=== PATIENT | male | born 1950 | race Caucasian/White ===

== ENCOUNTER 2024-05-05 12:28 | Observation (INO) ==
[2024-05-05] MEDS ORDERED: iohexoL-300 100 ML VIAL ONE (12:35)
--- NOTE | 2024-05-05 12:40 | ED Physician Documentation ---
History of Present Illness Stated complaint Stated Complaint: NOT FEELING WELL/WEAKNESS Chief complaint Chief Complaint: Neuro Additonal information Additional information: Within the last few weeks he has had a diagnosis of metastatic cecal cancer. I was able to pull up records on care everywhere and he has numerous liver masses and had a colonoscopy just yesterday showing a cecal mass. I did not see that he had had cranial imaging done. Today at 10 AM developed right sided facial droop, weakness, and off balance not associated with headache. He has no history of stroke. Prehospital blood pressure and blood sugar were unremarkable. He was being referred to [facility] for the above. Brought in as a code stroke. Not anticoagulated. [facility] Social History Social History Do you feel safe in your home environment?: Yes Suffered physical, verbal, emotional, or financial abuse?: No Exam Constitutional normal general appearance and no apparent distress He is thin and cachectic with a soft voice. Eyes PERRL and EOMs intact bilaterally Respiratory breath sounds equal bilaterally, normal respiratory effort and clear to auscultation bilaterally Cardiovascular normal heart rate noted, regular rhythm noted and no murmur Gastrointestinal abdomen soft to palpation, nontender to palpation and nontender to percussion Extremities 2+ edema bilateral Results Vitals Vitals: Vital Signs - 24 hr 05/05/24 12:47 Temperature 36.5 C Temperature Source Temporal Artery Scan Pulse Rate 91 Respiratory Rate 13 Blood Pressure 126/80 O2 Saturation 98 O2 Source Room air Pain Intensity 0 Oxygen O2 Source Room air EKG (time done) 1255: EKG releavant findings:: EKG personally interpreted by author of this note. Relevant findings are: Normal sinus rhythm with a rate of 88. No ST elevation or depression. Computer notes "aberrant conduction of SV complexes." Computer also notes a PVC but I think it is artifactual looking at the third beat in V2. PD Medical Decision Making ED course ED course: He presents as a code stroke with right-sided deficits and an NIH stroke scale of 4 with time of onset at 10 AM. He was taken straight over to CT. Given the above history of would also be concern for intracranial metastatic disease as the cause of his symptomatology. The facial droop would suggest against spinal cord disease causing his symptomatology. I spoke with our telestroke neurologist, Dr. Barroso at 12:55 PM and she will see the patient. But at least initially based on the above history she was very hesitant to recommend thrombolytics given that he had a biopsy yesterday and could cause liver hemorrhage as well. Dr. Barroso called me back and we spoke again around 1:05 PM and confirms that he should have an MRI with and without contrast. Permissive hypertension, aspirin now and admit for further workup. Does not recommend thrombolysis.. I spoke with our hospitalist team at 1:15 PM for admission. The patient and family are counseled as to the diagnosis and need for admission. This document was made in part using voice recognition software, while efforts are made to proofread this document, sound alike an grammatical errors may occur. 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 Print Language: Belarusian Stand Alone Forms: PCP List NIHSS Time 1235: Time: 12:35 Level of Consciousness Level of consciousness: (0) Alert, Keenly responsive LOC Questions: (0) Answers both Q's correct LOC Commands: (0) Performs both correctly Gaze Best Gaze: (0) Normal Visual Visual: (0) No loss Facial Palsy Facial Palsy: (2) Partial paralysis (right) Motor Arms (both separate) Motor Arm (right): (1) Drift Motor Arm (left): (0) No drift Motor Legs (both separate) Motor Leg (right): (0) No drift Motor Leg (left): (0) No drift Limb Ataxia Limb Ataxia: (1) Present in 1 limb (RUE) Sensory Sensory: (0) Normal Best Language Best Language: (0) No aphasia Dysarthria Dysarthria: (0) Normal Extinction and Inattention (formally neg Extinction and inattention: (0) No abnormality Total Score/Results Total Score/Result: 4
--- NOTE | 2024-05-05 12:51 | CT Report ---
PROCEDURE: CT Head W/O Stroke Protocol INDICATIONS: Neuro deficit, acute, stroke suspected TECHNIQUE: Noncontrast 4.5 mm thick angled axial sections acquired from the foramen magnum to the vertex, with c oronal reformats. For radiation dose reduction, the following was used: automated exposure control, adjustment of mA and/or kV according to patient size. COMPARISON: None. FINDINGS: Image quality: Excellent. CSF spaces: Basal cisterns are patent. No extra-axial fluid collections. Ventricles are normal in size and shape. Brain: No midline shift. No intracranial masses or hemorrhage. Chow-white matter interface is norm al. Intracranial carotid calcifications. Age-related volume loss and small vessel ischemic change. Skull and face: Calvarium and visualized facial bones are intact, without suspicious lesions. Sinuses: Visualized sinuses and mastoids are clear. IMPRESSION: No acute intracranial pathology Above discussed with Umer Mayer MD at the time of dictation on 05/05/2024 at 1248 hours. This study fulfills neurological imaging criteria for inclusion or exclusion of acute stroke therapie s based on available published neurological imaging guidelines. Reviewed by: Jose Arreola MD on 05/05/2024 12:50 PM PST Approved by: Jose Arreola MD on 05/05/2024 12:50 PM PST Station ID: [id number]
[2024-05-05] MEDS: iohexoL-300 100 ML VIAL IVP ONE (12:52)
--- NOTE | 2024-05-05 12:58 | CT Report ---
PROCEDURE: CT Angio Head/Neck INDICATIONS: cva sx TECHNIQUE: After the administration of intravenous contrast, 1 mm thick sections acquired from the aortic arch t hrough the Justin of Olivares. 3-dimensional ldhhofs-gnvrcnrbm-citiqogake (MIP) and/or volume renderin g reformats were acquired of the central intracranial vasculature and neck separately. For radiation dose reduction, the following was used: automated exposure control, adjustment of mA and/or kV acco rding to patient size. CONTRAST: 80ml omni 300 COMPARISON: CT head without contrast obtained immediately prior to this study. FINDINGS: Image quality: Diagnostic. HEAD CT: CSF Spaces: Basal cisterns are patent. No extra-axial fluid collections. Ventricles are normal in size and shape. Brain: No significant abnormality is seen for scanning technique. Skull and face: Calvarium and visualized facial bones appear intact, without suspicious lesions. Sinuses: Visualized sinuses and mastoids are clear. HEAD CT ANGIOGRAPHY: Anterior circulation: Intracranial internal carotid arteries are normal in size and flow. The flow within the paired anterior cerebral arteries is normal and symmetric. The flow within the middle cer ebral arteries is normal and symmetric. The anterior communicating artery is seen. No aneurysms are seen. Posterior circulation: Visualized portions of the vertebral arteries demonstrate normal caliber, and join to form a normal appearing basilar artery. Flow within the posterior cerebral arteries is norm al and symmetric. No aneurysms are seen. NECK CT ANGIOGRAPHY: Carotid system: The great vessels demonstrate a conventional anatomy as they arise from the aortic a rch. The origins of the common carotid arteries appear patent. The common carotid arteries demonstr ate normal caliber and courses. The bifurcation regions are both widely patent. The internal caroti d arteries demonstrate normal calibers and courses. Posterior circulation: The origins of the vertebral arteries both appear widely patent. The more jensen perior extracranial portions of both vertebral arteries also demonstrate normal courses and calibers. They join to form a normal appearing basilar artery. Soft tissues: Visualized neck soft tissues demonstrate no suspicious abnormalities. Bones: No suspicious bony lesions. Visualized cervical spine appears normally aligned. IMPRESSION: No significant intracranial arterial abnormality is seen. No significant abnormality is seen within the arteries of the neck. The estimate of stenosis included in the report of the imaging study was calculated using the NASCET method Reviewed by: Jose Arreola MD on 05/05/2024 12:57 PM PST Approved by: Jose Arreola MD on 05/05/2024 12:57 PM [facility] Station ID: [id number]
[2024-05-05] MEDS ORDERED: GADOTERATE MEGLUMINE 7.5 MMOL/15 ML VIAL ONE (13:14)
[2024-05-05] MEDS: ASPIRIN CHEW 81 MG TABLET PO STA (13:26)
[2024-05-05 13:33] LABS: BASOPHILS % (AUTO) 0.1 %; EOSINOPHILS % (AUTO) 0.3 %; HCT - HEMATOCRIT 35.2 % (42.0-52.0); HGB - HEMOGLOBIN 10.5 g/dL (14.0-18.0); LYMPHOCYTES # (AUTO) 1.3 10^3/uL (1.5-3.5); MEAN CORPUSCULAR HGB CONC 29.8 g/dL (32.0-36.0); MEAN CORPUSCULAR VOLUME 87.1 fL (80.0-94.0); MEAN PLATELET VOLUME 11.3 fL (7.4-11.4); MONOCYTES # (AUTO) 1.3 10^3/uL (0.0-1.0); MONOCYTES % (AUTO) 8.8 %; NEUTROPHILS # (AUTO) 11.8 10^3/uL (1.5-6.6); PLT - PLATELET COUNT 300 10^3/uL (130-450); RED BLOOD COUNT 4.04 10^6/uL (4.70-6.10); RED CELL DISTRIBUTION WIDTH 19.8 % (12.0-15.0); WHITE BLOOD COUNT 14.5 x10^3/uL (4.8-10.8)
--- NOTE | 2024-05-05 14:22 | MRI Report ---
PROCEDURE: MRI Brain W/WO INDICATIONS: CVA, metastatic CA CONTRAST: Clariscan 15ml TECHNIQUE: Noncontrast axial T1 spin echo, axial T2 fast spin echo, sagittal and axial FLAIR, coronal T2 fast sp in echo, axial gradient echo, axial diffusion and ADC through the brain. After the administration of contrast, axial and coronal T1 spin echo with fat saturation through the brain. COMPARISON: Head CT and CT angiogram of the head and neck dated 05/05/2024. FINDINGS: Image quality: Excellent. CSF spaces: Basal cisterns are patent. No extra-axial fluid collections. Ventricles are normal in size and shape. Brain: No midline shift. No intracranial bleeds or masses. No abnormal intracranial enhancement. There is cerebral volume loss for age. There is very mild, age-appropriate periventricular white mat ter chronic small vessel ischemic change. The brainstem appears normal. Diffusion-weighted images d emonstrate no acute ischemic insults. No chronic ischemic insults. Normal intravascular flow voids are present. Skull and face: Calvarial marrow is normal in signal. Orbits appear normal. Sinuses: Sinuses and mastoids appear clear. IMPRESSION: Unremarkable brain MRI for patient age with without contrast. No acute stroke. No metast atic disease. No acute process. Reviewed by: Jose Arreola MD on 05/05/2024 2:20 PM PST Approved by: Jose Arreola MD on 05/05/2024 2:20 PM PST Station ID: [id number]
[2024-05-05 14:55] LABS: ALBUMIN 3.1 g/dL (3.2-5.5); ALBUMIN/GLOBULIN RATIO 0.9 (1.0-2.2); BILIRUBIN,TOTAL 2.5 mg/dL (0.2-1.0); CALCIUM 9.6 mg/dL (8.5-10.3); CREATININE 0.9 mg/dL (0.6-1.3); INR 1.6 (0.8-1.2); POTASSIUM 3.5 mmol/L (3.5-4.5); PT - PROTHROMBIN TIME 17.4 secs (9.9-12.6); TOTAL PROTEIN 6.7 g/dL (6.4-8.9)
--- NOTE | 2024-05-05 15:06 | HISTORY & PHYSICAL EXAMINATION ---
Chief Complaint Chief Complaint Chief Complaint: right hand not working History of Present Illness Admitted From Admitted From:: home History Obtained From History obtained from: Patient and sister History of Present Illness HPI Comment/Other: 73-year-old male who received a diagnosis of metastatic colon cancer 2 weeks ago and a past medical history of hypertension presents to the emergency department with complaints of right sided weakness and right facial droop. He received his cancer diagnosis about 2 weeks ago through an ED visit in [place]. He has not yet started treatment. He had a colonoscopy yesterday at [facility]. He has a history of rheumatoid arthritis of which she states he is cured with diet and hypertension. He is experienced some weight loss over the last months as well as weakening of his voice. He tells me that he wants to go home and that he does not want to stay in the hospital. Meds/Allgy Home Medications Ambulatory Orders Medication Instructions Recorded Confirmed amlodipine 5 mg tablet (Norvasc) 5 mg PO DAILY 05/05/24 05/05/24 hydrocodone 5 mg-acetaminophen 325 1 tab PO BID PRN pain 05/05/24 05/05/24 mg tablet irbesartan 150 1 tab PO DAILY 05/05/24 05/05/24 mg-hydrochlorothiazide 12.5 mg tablet (Avalide) mirtazapine 15 mg tablet 15 mg PO DAILY 05/05/24 05/05/24 spironolactone 25 mg tablet 25 mg PO DAILY 05/05/24 05/05/24 (Aldactone) Allergies Allergies Allergy/AdvReac Type Severity Reaction Status Date / Time No Known Drug Allergies Allergy Verified 05/05/24 13:25 [facility] Social History Social History Smoking Status: Former smoker Second hand tobacco smoke exposure: No Do you dip or chew tobacco?: No Do you vape?: No Relationship: Sibling Level: Independent Do you feel safe in your home environment?: Yes Suffered physical, verbal, emotional, or financial abuse?: No POLST Patient has POLST: No POLST Status: DNR Review of Systems Status of ROS: 10 or more systems reviewed and unremarkable except as noted in history and below Cardiovascular Reports: swelling of feet/ankles Neurological Reports: Focal weakness; Denies: Headache, Pre-existing deficit, Memory problems, Behavioral changes or Slurred speech Prior Level of Functionality: Independent. Retired, drives, takes care of himself. Lives alone. Exam Constitutional Gaunt appearance with temporal wasting. Appears chronically ill HENMT normocephalic, hearing grossly normal bilaterally, external ears normal, oropharynx normal, dentition normal and gingiva normal Eyes PERRL, EOMs intact bilaterally and conjunctivae normal Neck/C-Spine visual inspection normal Lymph no lymphadenopathy noted Chest inspection of chest normal and palpation of chest normal Respiratory breath sounds equal bilaterally, normal respiratory effort and clear to auscultation bilaterally Cardiovascular normal heart rate noted, regular rhythm noted and no additional abnormal heart sounds Gastrointestinal abdomen normal to inspection, abdomen soft to palpation and nondistended Back/Pelvis spine normal to inspection Extremities 2+ pitting edema Neurology speech normal (voice is soft) and GCS 15 right facial droop. otherwise WNL. no pronator drift was noted. 5/5 upper and lower ext strength Psychiatry mental status grossly normal and oriented x3 Skin skin color normal and no rash Conclusion/Plan Problem List (1) TIA (transient ischemic attack): Plan: Onset of right facial droop this morning. It is gradually improving. Patient states initially his right hand did not work but now it seems fine. He has had a CT of the head which was negative he has had a CTA of the head and neck which was negative he has had an MRI of the brain which has been negative. Telestroke was consulted. They recommended against tPA given the fact that this patient had a colonoscopy with biopsies yesterday and also has metastatic liver cancer with metastases that could certainly bleed in the incidence of systemic thrombolytics. He has had completion of images for echocardiogram. Read is pending. He will be placed on telemetry monitoring overnight. He will be given IV fluids for rehydration as he underwent colonoscopy yesterday and is still feeling weak from that. This patient lives alone. He will additionally benefit from close nursing observation overnight.I have ordered PT and OT evaluations for the a.m. I have discussed this patient with Dr Mayer. Decision was made to admit. PAtient is initially resistant to admission. In discussion with his sister at the bedside, he agrees to stay overnight for excellent nursing care, IV hydration, and PT/OT evaluation in the AM. Secondary stroke prevention: ASA, Plavix x 21 days, statin I have also ordered UA to assess for UTI (pending) and CXR which was neg for PNA- there is RLL atelectasis, not unexpected as likely has increased mass of liver given mets. 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 He has not started chemotherapy. He had a colonoscopy yesterday for biopsy of a cecal mass. He has metastases to his liver. On his labs he has hyperbilirubinemia as well as transaminitis. This is expected in the setting of metastatic colon cancer. It could also be adding to a hypercoagulable state making him more prone to thromboembolic events. He is also had some edema of his lower extremities over the last several weeks which is not clearly explained. He is on spironolactone daily per his PCP. (3) Hypertension: Plan: Longstanding history of hypertension. His meds include amlodipine 5 mg daily, irbesartan/HCTZ 150/12.5 daily spironolactone 25 mg daily and mirtazapine 15 mg at at bedtime. Also has been taking hydrocodone 5mg every 6h for abdominal pain. I have ordered 7.5mg as we do not have 5mg here. Plan I have spent 85 minutes in the care of this patient today. This includes time [id number], review and ordering of diagnostic imaging and laboratory studies and consultation with other providers.. Monitoring the patient's signs symptoms, evaluation of medication effectiveness and patient's response to treatment. Lab Results Lab results reviewed: Yes 05/05/24 13:27 05/05/24 14:31 Core Measures Anticipated LOS I expect patient to be DC'd or transferred within 96 hours.: Yes Issues Hospital Issues and Management Plan: Acute TIA. will complete telemetry, PT and OT evaluation. DVT/VTE - Prophylaxis VTE/DVT Device ordered at admit?: Yes VTE/DVT Prophylaxis med ordered at admit?: Yes Stroke - Rehab Assessment Rehab services assessment to be ordered?: Yes
--- NOTE | 2024-05-05 15:13 | XRAY Report ---
PROCEDURE: XR Chest 1V INDICATIONS: leukocytosis TECHNIQUE: One view of the chest was acquired. COMPARISON: None. FINDINGS: Surgical changes and devices: None. Lungs and pleura: No pleural effusions or pneumothorax. Platelike atelectasis at right infrahilar re gion is seen. No definite focal infiltrate.. Mediastinum: Mediastinal contours appear normal. Heart size is normal. Bones and chest wall: No suspicious bony lesions. Overlying soft tissues appear unremarkable. IMPRESSION: Right lower lobe atelectasis. No definite focal infiltrate. No pleural effusion or pneumothorax. Reviewed by: Bill Garcia MD on 05/05/2024 3:11 PM PST Approved by: Bill Garcia MD on 05/05/2024 3:11 PM PST Station ID: [id number]
[2024-05-05] MEDS ORDERED: SODIUM CHLORIDE FLUSH 0.9% 10 ML SYRINGE IVP PRN (16:12)
[2024-05-05] MEDS ORDERED: ONDANSETRON 4 MG/2 ML VIAL IVP PRN (16:12)
[2024-05-05] MEDS ORDERED: ACETAMINOPHEN 325 MG TABLET PO PRN (16:12)
--- NOTE | 2024-05-05 16:17 | PHARMACY PROGRESS NOTE ---
Best Possible Medication History Admit Date and Time: 05/05/24 [id number] Home Medications Medication Instructions Recorded Confirmed Type amlodipine 5 mg tablet (Norvasc) 5 mg PO DAILY 05/05/24 05/05/24 History hydrocodone 5 mg-acetaminophen 325 1 tab PO BID PRN pain 05/05/24 05/05/24 History mg tablet irbesartan 150 1 tab PO DAILY 05/05/24 05/05/24 History mg-hydrochlorothiazide 12.5 mg tablet (Avalide) mirtazapine 15 mg tablet 15 mg PO DAILY 05/05/24 05/05/24 History spironolactone 25 mg tablet 25 mg PO DAILY 05/05/24 05/05/24 History (Aldactone) Medications reviewed in ED?: Yes Medication History completed: Yes Patient Interview: Completed Secondary Source(s): Pharmacy records and Insurance records [facility] Statement: As the person ultimately responsible for medication therapy, providers are able to order a medication from an existing home medication list in [facility] via the "Reconcile Routine" prior to Confirmation of that medication by marketing support assistant. Such practice is discouraged except when the physician, in their clinical judgment, deems that a medical need exists for a medication without regard to previous use.
[2024-05-05] MEDS: LACTATED RINGERS 1,000 ML IV SCH (16:31)
[2024-05-05] MEDS: SODIUM CHLORIDE FLUSH 0.9% 10 ML SYRINGE IVP SCH (16:32)
[2024-05-05] MEDS: HYDROcod/ACETAM 7.5 MG/325 MG TABLET PO PRN (16:40)
[2024-05-05] MEDS: CLOPIDOGREL 75 MG TABLET PO SCH (16:41)
[2024-05-05] MEDS: ASPIRIN EC 81 MG TABLET PO SCH (16:41)
[2024-05-05 17:01] LABS: BILIRUBIN,URINE SMALL (NEGATIVE); GLUCOSE, URINE (UA) NEGATIVE (NEGATIVE); KETONES,URINE (UA) NEGATIVE (NEGATIVE); LEUKOCYTE ESTERASE, URINE NEGATIVE (NEGATIVE); NITRITE,URINE NEGATIVE (NEGATIVE); OCCULT BLOOD,URINE NEGATIVE (NEGATIVE); PH,URINE 5.5 PH (5.0-7.5); PROTEIN,URINE 30 mg/dL (NEGATIVE); UROBILINOGEN,URINE 1 (NORMAL) E.U./dL (NORMAL)
[2024-05-05 17:04] LABS: CLARITY,URINE HAZY (CLEAR)
[2024-05-05 17:13] LABS: AMORPHOUS SEDIMENT,UR Few /LPF; BACTERIA,URINE None Seen /HPF (None Seen); CASTS, URINE 3-5 Hyaline Casts /LPF; RBC,URINE 0-5 /HPF (0-5); SQUAMOUS EPITHELIAL CELL,UR NONE SEEN (<= Few); WBC,URINE 0-3 /HPF (0-3)
[2024-05-05] MEDS: GADOTERATE MEGLUMINE 7.5 MMOL/15 ML VIAL IVP ONE (17:24)
[2024-05-05] MEDS: oxyCODONE 5 MG TABLET PO PRN (18:38)
[2024-05-05] MEDS: HEPARIN 5,000 UNIT/ML VIAL SUBQ SCH (21:22)
[2024-05-05] MEDS: ATORVASTATIN 40 MG TABLET PO SCH (21:22)
[2024-05-06 06:17] LABS: BASOPHILS % (AUTO) 0.2 %; EOSINOPHILS % (AUTO) 0.2 %; HCT - HEMATOCRIT 30.2 % (42.0-52.0); HGB - HEMOGLOBIN 9.6 g/dL (14.0-18.0); LYMPHOCYTES # (AUTO) 1.4 10^3/uL (1.5-3.5); LYMPHOCYTES % (AUTO) 10.6 %; MEAN CORPUSCULAR HEMOGLOBIN 26.6 pg (27.0-31.0); MEAN CORPUSCULAR HGB CONC 31.8 g/dL (32.0-36.0); MEAN CORPUSCULAR VOLUME 83.7 fL (80.0-94.0); MEAN PLATELET VOLUME 10.6 fL (7.4-11.4); MONOCYTES # (AUTO) 1.3 10^3/uL (0.0-1.0); NEUTROPHILS # (AUTO) 10.2 10^3/uL (1.5-6.6); NEUTROPHILS % (AUTO) 78.3 %; PLT - PLATELET COUNT 301 10^3/uL (130-450); RED BLOOD COUNT 3.61 10^6/uL (4.70-6.10); RED CELL DISTRIBUTION WIDTH 19.3 % (12.0-15.0); WHITE BLOOD COUNT 12.9 x10^3/uL (4.8-10.8)
[2024-05-06 06:32] LABS: ALBUMIN 2.8 g/dL (3.2-5.5); ALBUMIN/GLOBULIN RATIO 0.8 (1.0-2.2); BILIRUBIN,TOTAL 2.5 mg/dL (0.2-1.0); CALCIUM 8.7 mg/dL (8.5-10.3); CREATININE 0.9 mg/dL (0.6-1.3); POTASSIUM 3.5 mmol/L (3.5-4.5); TOTAL PROTEIN 6.1 g/dL (6.4-8.9)
--- NOTE | 2024-05-06 11:47 | Discharge Summary ---
Discharge Summary Admit Date: 05/05/24 Discharge Date: 05/06/24 Discharging Provider: Raji Olivares NP Primary Care Provider: Alma Gomes Code Status: Attempt Resuscitation DIAGNOSES Admission Diagnoses: TIA Metastatic colon cancer to liver Hypertension Discharge Diagnoses with Status of Each Condition: TIAactive Metastatic colon cancer to liverchronic Hypertensionchronic HPI History of Present Illness: 73-year-old male who received a diagnosis of metastatic colon cancer 2 weeks ago and a past medical history of hypertension presents to the emergency department with complaints of right sided weakness and right facial droop. He received his cancer diagnosis about 2 weeks ago through an ED visit in [place]. He has not yet started treatment. He had a colonoscopy yesterday at [facility]. He has a history of rheumatoid arthritis of which she states he is cured with diet and hypertension. He is experienced some weight loss over the last months as well as weakening of his voice. HOSPITAL COURSE Hospital Course: Patient was placed in observation and underwent MRI brain which was clear. He also underwent echocardiogram, results not available yet. EKG showed sinus rhythm. Symptoms are slowly resolving, however he still does have some noticeable right-sided weakness. He is being discharged home with home health PT/OT/bath aide per physical therapy recommendations. He is being discharged on aspirin, Plavix, Lipitor, and has been instructed to follow-up with PCP within 2 weeks ALLERGIES Allergies Allergy/AdvReac Type Severity Reaction Status Date / Time No Known Drug Allergies Allergy Verified 05/05/24 13:25 MEDICATIONS Ambulatory Orders Medication Instructions Recorded Confirmed amlodipine 5 mg tablet (Norvasc) 5 mg PO DAILY 05/05/24 05/05/24 hydrocodone 5 mg-acetaminophen 325 1 tab PO BID PRN pain 05/05/24 05/05/24 mg tablet irbesartan 150 1 tab PO DAILY 05/05/24 05/05/24 mg-hydrochlorothiazide 12.5 mg tablet (Avalide) mirtazapine 15 mg tablet 15 mg PO DAILY 05/05/24 05/05/24 spironolactone 25 mg tablet 25 mg PO DAILY 05/05/24 05/05/24 (Aldactone) aspirin 81 mg tablet,delayed 81 mg PO DAILY 21 days #21 tabs 05/06/24 release atorvastatin 40 mg tablet 40 mg PO QPM 30 days #30 tabs 05/06/24 clopidogrel 75 mg tablet 75 mg PO DAILY 21 days #21 tabs 05/06/24 PHYSICAL EXAM AT DISCHARGE General Appearance: positive No acute distress and Alert Eyes Bilateral: positive Normal inspection and PERRL ENT: positive ENT inspection nml and Pharynx nml Neck: positive Nml inspection and Thyroid nml Respiratory: positive Chest non-tender and No respiratory distress Cardiovascular: positive Regular rate & rhythm and No murmur Peripheral Pulses: positive 2+ Abdomen: positive Non-tender and No organomegaly Skin: positive Color nml Extremities: positive Non-tender Neurologic/Psychiatric: positive Oriented x3 and Weakness (Right-sided) LABS 05/06/24 05:57 05/06/24 05:57 DIAGNOSTIC IMAGING Diagnostic Imaging Results: Final report reviewed Diagnostic Imaging Results Comments: MRI brain no acute abnormality FOLLOW UP Follow Up: With PCP within 2 weeks TIME SPENT Time Spent in Discharge (Minutes): 25 Discharge Plan Discharge Patient Disposition: Home, Self Care Condition: Serious Medically Cleared Date:: 05/06/24 Prescriptions: New aspirin 81 mg Tablet,Delayed Release (Dr/Ec) 81 mg PO DAILY 21 Days Qty: 21 0RF atorvastatin 40 mg Tablet 40 mg PO QPM 30 Days Qty: 30 0RF clopidogrel 75 mg Tablet 75 mg PO DAILY 21 Days Qty: 21 0RF Continued hydrocodone-acetaminophen 5-325 mg tablet 1 tab PO BID PRN (Reason: pain) Patient Comments: 1 TAB orally every 6 hours As Needed for pain spironolactone [Aldactone] 25 mg tablet 25 mg PO DAILY mirtazapine 15 mg tablet 15 mg PO DAILY irbesartan-hydrochlorothiazide [Avalide] 150-12.5 mg tablet 1 tab PO DAILY amlodipine [Norvasc] 5 mg tablet 5 mg PO DAILY Diet: Regular Interventions: Belongings Inventory Last Done: 05/05/24 17:10 Health Concerns: You are a 73-year-old male who presented with right-sided weakness. You were held in observation so we could do a full stroke workup on you. You underwent MRI which was negative. You underwent echocardiogram. We have no read on this echo yet, but she can follow-up with your primary care provider regarding this. You were seen by teleneurologist, who recommends that you be placed on aspirin, Plavix for at least 3 weeks. He also recommended atorvastatin. These drugs will help reduce the risk of recurrent stroke. New meds: Aspirin 81 mg p.o. daily Plavix 75 mg p.o. daily x 3 weeks Lipitor 40 mg p.o. daily Care Plan Goals: Your goal is to return to your previous level of function. I have ordered home health PT/OT as well as a bath aide to help you with ADLs. I would like for you to remain as active as possible and be compliant with your new medication regimen Assessment: Patient is being sent home with home health PT per physical therapy recommendations.. Requires assistance with some ADLs. Follow-up with PCP within 2 weeks Plan of Treatment: Aspirin, Plavix, Lipitor as described above. Activity as tolerated. Follow-up with PCP within 2 weeks Print Language: Cape Verdean Patient Instructions: TIA Stand Alone Forms: PCP List
[2024-05-06 12:27] VITALS: BP 102/66; TEMP 97.5; O2SAT 94
== END 2024-05-06 12:53 | disposition home or self-care (01) ==
LOC: ED 12:28 → MS2 12:28
PROVIDERS: ADMIT Physician Assistant Medical; ATTEND Physician Assistant Medical
DX: E80.6 Other disorders of bilirubin metabolism; R53.1 Weakness; Z87.891 Personal history of nicotine dependence; C18.0 Malignant neoplasm of cecum; C78.7 Secondary malignant neoplasm of liver and intrahepatic bile duct; R74.01 Elevation of levels of liver transaminase levels; I10 Essential (primary) hypertension; R63.4 Abnormal weight loss; G45.9 Transient cerebral ischemic attack, unspecified; Z68.22 Body mass index [BMI] 22.0-22.9, adult